=== PATIENT | female | born 2000 ===

== ENCOUNTER 2020-11-13 08:00 | Outpatient (RCR) | payer OTHER, SELFPAY ==
--- NOTE | 2020-10-31 12:50 | P.HPPSP_ITS ---
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 She was referred from inpatient psychiatry [facility] from [facility] after an admission for several days after a suicidal attempt by overdose. She reported that she carries the diagnosis of depression. She stated that she is only taking Lamictal 200 mg po qhs and she has already stopped Abilify. The patient is a poor historian regarding prior medication trials. She complained a long history of depressive symptoms that started at the age of 12 with depressed mood, anhedonia, lack of energy, poor sleep and feelilngs of hopelesness but she also reported irritability and mood swings. During the intake interview, she reported that she was discharged 3 or 3 weeks ago from the hospital and she is feeling euthymic by taking only Lamictal, she denied new symptoms and she understood Peña warning. No safety concerns. Past Psychiatric History: Her first psychiatric contact was at the age of 12 for depression and self-harming behavior, she was receiving outpatient services until she was 15 that she was referred to a PHP. She has outpatient providers. This was her first psychiatric admission. Medical Evaluation Reviewed: No PMFSH Family History: Her brother is bipolar. Her father is schizophrenic. Social History: The patient is the oldest of 2 siblings, her milestones were achieved at expected age, she was raised by her parents and she had a good childhood. She had poor school performance and it was addressed when she was at high school. She graduated from high school and tried college but eventually she dropped it and now she is working. She lives with her mother and brother. Substance History: Denies Trauma History: Denies Meds/Allergies Allergies Allergies Allergy/AdvReac Type Severity Reaction Status Date / Time Unable to Assess Allergy Unverified 10/31/20 09:18 Mental Status Exam Mental Status Exam Patient Appearance: Well Grooomed Patient Orientation: Person, Place, Time and Situation Level of Consciousness: Awake Patient Behavior: Appropriate Mood Description: Withdrawn Affect Description: Calm Patient Cognition Impaired: No Ability to Follow Directions: Good Speech Pattern: Clear Memory Description: Intact Hallucinations: None Delusions: Not Present Thought Process: Goal Oriented Thought Content: positive for Intact Judgement: Fair Assessment & Plan Assessment & Plan (1) Mood disorder: Status: Acute Code(s): F39 - Unspecified mood [affective] disorder Assessment and Plan: The patient is a young female with mood symptoms since she was a teenager, who was admitted for the first time a few weeks ago after a suicidal attempt by OD and referred to PHP for continuation of treatment. Currently only on Lamictal 200 mg po qhs with fair improvement. Plan: Keep same treatment Certification I certify that partial hospital treatment is medically necessary due to the symptoms and problems resulting from the patient's mental illness and the failure to treat the patient at the partial hospital level of care would likely result in the patient requiring inpatient psychiatric care which could not be prevented at a less intensive level of care. Telehealth Telehealth Location of provider rendering services: practice address Location of patient: address on file Patient Identification confirmed using: Name, : Yes Telehealth method: video Patient verbally consented to treatment: Yes Patient verbally consented to billing insurance company: Yes Patient informed of any privacy concerns related to visit: No Time spent with patient (mins): 45
[2020-11-02 13:21] VITALS: BMI 29.2
--- NOTE | 2020-11-02 13:40 | PC.ADMIT ---
Patient is a 20 year old female who was referred to [facility] by [facility] after patient attempted suicide via overdose on Adderall. Patient reportedly went into cardiac arrest and was admitted medically for a day. Per [facility] records patient prior to the overdose patient was withdrawing from friends and stopped caring about things and was thinking about suicide for a while and felt she could't live this way any longer. Patient also recently lost her job. Per [facility] d/c medication list patient was discharged on Adderall however patient reports she was not taking this in the hospital and she is not currently taking and does not want to continue this medication. Stated the discharge paperwork is a mess and not right. Patient also prescribed Ferrous sulfate for hx of anemia however patient did not feel she needed it as she did not have symptoms of dizziness. Medication education provided, patient plans to continue the medication. Patient is alert and oriented x4. Calm and cooperative. Presents with depressed mood and affect. Denied SI. Gave verbal permission to email her a copy of her safety plan. Asked patient if feeling unsafe who could she contact and patient stated her mother and if her mother is not home then crisis.
--- NOTE | 2020-11-05 14:22 | PC.NURSE ---
DON for pt. Asked her to pls call re: how treatment is going and length of stay.
--- NOTE | 2020-11-06 14:31 | HO.PHPPROGNO ---
Subjective Subjective Date of Service: 11/06/20 Reason For Visit: Major Depression, Recurrent Interim History: The patient reported that she is doing well, no exacerbation of depressive symptoms, no side effects. Medication Compliance: Yes Side effects from medications: No Attending Groups: Yes Review of Systems Acute medical concerns: Yes Medical Review of Systems: unchanged Mental Status Exam Mental Status Exam Patient Appearance: Well Grooomed Patient Orientation: Person, Place, Time and Situation Level of Consciousness: Awake Patient Behavior: Appropriate Mood Description: Appropriate Affect Description: Calm Patient Cognition Impaired: No Ability to Follow Directions: Good Speech Pattern: Clear Memory Description: Intact Hallucinations: None Delusions: Not Present Thought Process: Goal Oriented Thought Content: positive for Intact Judgement: Fair Diagnostics Vital Signs (24Hr): Body Mass Index 29.2 Assessment & Plan Assessment & Plan (1) Mood disorder: Status: Acute Code(s): F39 - Unspecified mood [affective] disorder Assessment and Plan: The patient is a young female with bipolar type II with a recent hospitalization after exacerbation of depression. Currently only on Lamictal with no dysphoria. Plan: Keep same treatment. Certification I certify that partial hospital treatment is medically necessary due to the symptoms and problems resulting from the patient's mental illness and the failure to treat the patient at the partial hospital level of care would likely result in the patient requiring inpatient psychiatric care which could not be prevented at a less intensive level of care. Greater than 50% of the session was spent on counseling and/or coordination of care Discharge Plan Discharge Attending provider: Christiano Cormier Primary Care Provider: Bridget Alexander Medications: No Action lamotrigine 200 mg Tablet 200 mg PO BEDTIME RF: 0 ferrous sulfate 325 mg (65 mg iron) Tablet 325 mg PO DAILY RF: 0 Referrals: Bridget Alexander MD [Primary Care Provider] - 1 Week Telehealth Telehealth Location of provider rendering services: practice address Location of patient: address on file Patient Identification confirmed using: Name, : Yes Telehealth method: video Patient verbally consented to treatment: Yes Patient verbally consented to billing insurance company: Yes Patient informed of any privacy concerns related to visit: No Time spent with patient (mins): 15
--- NOTE | 2020-11-07 14:02 | PC.NURSE ---
With pt's permission, I called and spoke to staff at [facility]. They confirmed that pt has completed an intake on 10/24/20, and said she is on the waitlist for an assigned therapist. I asked if they prioritize patient's coming out of the hospital or PHP, and she said she's not sure but will email the question to her package center supervisor and get back to me.
--- NOTE | 2020-11-07 15:29 | PC.NURSE ---
I received a message from Abi at [facility] replying to my inquiry about a therapy appt for pt. She said they are unable to prioritize appointments for people coming out of the hospital, but that the pt can see an interim therapist while waiting for a space to open from the wait list. She gave me the number for therapist Addi Roy at [phone]. I called pt and gave her this information, and she said she would call and make an appt.
--- NOTE | 2020-11-13 14:01 | P.PNPSP_ITS ---
Subjective Subjective Date of Service: 11/13/20 Reason For Visit: Major Depression, Recurrent Interim History: The patient reported that she is doing well with Lamictal, no safety issues. She is going to continue treatment with her regular prescriber. Medication Compliance: Yes Side effects from medications: No Attending Groups: No Review of Systems Acute medical concerns: No Medical Review of Systems: unchanged Mental Status Exam Mental Status Exam Patient Appearance: Well Grooomed Patient Orientation: Person, Place, Time and Situation Level of Consciousness: Awake Patient Behavior: Appropriate and Cooperative Mood Description: Calm Affect Description: Calm and Appropriate Patient Cognition Impaired: No Ability to Follow Directions: Good Speech Pattern: Clear Memory Description: Intact Hallucinations: None Delusions: Not Present Thought Process: Goal Oriented Thought Content: positive for Intact Judgement: Fair Diagnostics Vital Signs (24Hr): Body Mass Index 29.2 Assessment & Plan Assessment & Plan (1) Mood disorder: Status: Acute Code(s): F39 - Unspecified mood [affective] disorder Assessment and Plan: Young adult female referred from inpatient with mood disorder, safe and stable. Plan Keep Lamictal D/C from [facility] Certification I certify that partial hospital treatment is medically necessary due to the symptoms and problems resulting from the patient's mental illness and the failure to treat the patient at the partial hospital level of care would likely result in the patient requiring inpatient psychiatric care which could not be prevented at a less intensive level of care. Greater than 50% of the session was spent on counseling and/or coordination of care Discharge Plan Discharge Attending provider: Christiano Cormier Primary Care Provider: Bridget Alexander Medications: No Action lamotrigine 200 mg Tablet 200 mg PO BEDTIME RF: 0 ferrous sulfate 325 mg (65 mg iron) Tablet 325 mg PO DAILY RF: 0 Referrals: Bridget Alexander MD [Primary Care Provider] - 1 Week Stand Alone Forms: Patient Portal Discharge page Telehealth Telehealth Location of provider rendering services: practice address Location of patient: address on file Patient Identification confirmed using: Name, : Yes Telehealth method: video Patient verbally consented to treatment: Yes Patient verbally consented to billing insurance company: Yes Patient informed of any privacy concerns related to visit: No Time spent with patient (mins): 15
== END 2020-11-14 08:17 | disposition home or self-care (01) ==
LOC: HO.PHPA 08:00
PROVIDERS: PCP Pediatrics; Visit Provider Psychiatry & Neurology Psychiatry
DX: F39 Unspecified mood [affective] disorder (principal); F33.9 Major depressive disorder, recurrent, unspecified; Z79.899 Other long term (current) drug therapy; Z91.5 Personal history of self-harm
CPT/HCPCS: 90791; 90853